=== PATIENT | female | born 1990 | race African-American/Black ===

== ENCOUNTER 2016-12-28 07:54 | Emergency (ER) | payer OTHER ==
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
[~2016-12-28 07:54] MED LIST: AMOXICILLIN500 M1 PO; FLEXERIL10 M1 PO; LEXAPRO PO; NAPROSYN500 MG PO; VOLTAREN50 MG PO; ZYRTEC PO
== END 2016-12-28 10:14 | disposition home or self-care (01) ==
LOC: CED 07:54
DX: S06.0X0A Concussion without loss of consciousness, initial encounter (principal); S00.03XA Contusion of scalp, initial encounter; F17.200 Nicotine dependence, unspecified, uncomplicated; Z91.040 Latex allergy status; W50.1XXA Accidental kick by another person, initial encounter
CPT/HCPCS: 70450; 84703; 99284